=== PATIENT | female | born 1945 | race Caucasian/White ===

== ENCOUNTER 2020-02-07 09:59 | Inpatient (IN) ==
[2020-02-07 11:20] LABS: Basophils % 0.1 % (0.0-0.8); Hematocrit 47.3 VOL% (35.7-47.0); Hemoglobin 15.3 GM/DL (12.0-16.0); Immature Granulocytes % 1.1 %; Immature Granulocytes Absolute 0.11 #; Lymphocytes # 0.8 10*3/uL (1.4-4.0); Lymphocytes % 8.1 % (21.3-54.2); Mean Corpuscular HGB Conc 32.3 GM/DL (32-36); Mean Corpuscular Volume 78.2 FL (87-102); Mean Platelet Volume 10.5 FL (9.6-12.0); Monocytes % 5.6 % (1.7-12.7); Neutrophils % 85.1 % (38.7-73.9); Platelet Count 123 T/CUMM (130-400); Red Blood Count 6.05 MC/CUMM (3.8-5.5); Red Cell Distribution Width 14.9 % (9.3-17.3); White Blood Count 9.6 T/CUMM (4-12)
[2020-02-07 11:31] LABS: INR 1.1; PT Patient Result 11.3 SECS (9.8-11.9)
[2020-02-07 11:50] LABS: Albumin 2.8 G/DL (3.4-5.0); Bilirubin,Total 0.4 MG/DL (0.2-1.0); Calcium 7.9 MG/DL (8.5-10.1); Osmolality,Calculated 285.2 MOS/KG (273-304); Total Protein 6.7 G/DL (6.4-8.3)
[2020-02-07] MEDS ORDERED: LEVOFLOXACIN INJ 500 MG in PREMIX 1 EACH IV STA (11:57)
[2020-02-07] MEDS ORDERED: SODIUM CHLORIDE 0.9% 500 ML IV STA (12:13)
[2020-02-07] MEDS ORDERED: DEXAMETHASONE 4 MG/1 ML VIAL IV STA (12:14)
[2020-02-07] MEDS ORDERED: ONDANSETRON 4 MG/2 ML VIAL IV PRN (12:15)
[2020-02-07] MEDS ORDERED: ACETAMINOPHEN 325 MG TABLET PO PRN (12:15)
[2020-02-07 12:36] LABS: Bilirubin,Urine Negative (Negative); Blood, Urine Small mg/dL (Negative); Glucose,Urine (UA) >=500 mg/dL (Negative); Hyaline Casts,Urine 4 /LPF (0-3); Ketones,Urine 5 mg/dL (Negative); Mucus,Urine Occasional /LPF (Occasional); Nitrite,Urine Negative (Negative); Protein,Urine Negative; RBC,Urine 1 /HPF (0-4); Squamous Epithelial Cell,Urine Occasional /HPF (0-10); Urine Appearance CLOUDY (Clear); Urine Color Yellow (Yellow); Urine Specific Gravity 1.022 (1.001-1.035); Urine Urobilinogen < 2.0 EU/DL (0.2-1.0); WBC,Urine 4 /HPF (0-6)
[2020-02-07] MEDS: SODIUM CHLORIDE 0.9% 1,000 ML IV SCH ×2 (14:17→23:08)
[2020-02-07] MEDS: ZINC GLUCONATE 50 MG TABLET PO SCH (14:18)
[2020-02-07] MEDS ORDERED: DEXTROSE 50% 25 GM/50 ML VIAL IV PRN (16:26)
[2020-02-07] MEDS ORDERED: GLUCAGON 1 MG VIAL IM PRN (16:26)
[2020-02-07] MEDS: INSULIN LISPRO 100 UNIT/ML SUBCUT SCH ×2 (17:04→21:46)
[2020-02-07] MEDS: DEXAMETHASONE 4 MG TABLET PO SCH (21:46)
[2020-02-07] MEDS: DOCUSATE SODIUM 100 MG CAPSULE PO SCH (21:46)
[2020-02-07] MEDS: ENOXAPARIN 40 MG/0.4 ML SYRINGE SUBCUT SCH (21:47)
[2020-02-08 05:42] LABS: Basophils % 0.1 % (0.0-0.8); Hematocrit 46.7 VOL% (35.7-47.0); Hemoglobin 14.8 GM/DL (12.0-16.0); Immature Granulocytes Absolute 0.07 #; Lymphocytes # 0.5 10*3/uL (1.4-4.0); Lymphocytes % 7.1 % (21.3-54.2); Mean Corpuscular HGB Conc 31.7 GM/DL (32-36); Mean Corpuscular Volume 79.7 FL (87-102); Mean Platelet Volume 10.6 FL (9.6-12.0); Monocytes % 3.8 % (1.7-12.7); Platelet Count 110 T/CUMM (130-400); Red Blood Count 5.86 MC/CUMM (3.8-5.5); Red Cell Distribution Width 14.6 % (9.3-17.3); White Blood Count 7.3 T/CUMM (4-12)
[2020-02-08 06:02] LABS: Albumin 2.5 G/DL (3.4-5.0); Bilirubin,Total 0.5 MG/DL (0.2-1.0); Osmolality,Calculated 275.4 MOS/KG (273-304); Total Protein 7.1 G/DL (6.4-8.3)
[2020-02-08 06:04] LABS: Microcytosis Slight; Platelet Estimate Decreased
[2020-02-08] MEDS: SODIUM CHLORIDE 0.9% 1,000 ML IV SCH ×3 (06:25→21:15)
[2020-02-08] MEDS: lisinopriL 20 MG TABLET PO SCH (08:48)
[2020-02-08] MEDS: DOCUSATE SODIUM 100 MG CAPSULE PO SCH ×2 (08:48→21:10)
[2020-02-08] MEDS: ZINC GLUCONATE 50 MG TABLET PO SCH (08:48)
[2020-02-08] MEDS: PANTOPRAZOLE 40 MG TABLET PO SCH (08:48)
[2020-02-08] MEDS: DEXAMETHASONE 4 MG TABLET PO SCH ×2 (08:48→20:35)
[2020-02-08] MEDS: INSULIN LISPRO 100 UNIT/ML SUBCUT SCH ×4 (08:49→20:35)
[2020-02-08] MEDS: LEVOFLOXACIN INJ 500 MG in PREMIX 1 EACH IV SCH (08:49)
[2020-02-08] MEDS ORDERED: SODIUM CHLORIDE 0.9% 1,000 ML IV PRN (12:50)
[2020-02-08] MEDS ORDERED: REMDESIVIR 200 MG in SODIUM CHLORIDE 0.9% 210 ML IV ONE (15:00)
[2020-02-08] MEDS: ENOXAPARIN 40 MG/0.4 ML SYRINGE SUBCUT SCH (20:36)
[2020-02-09] MEDS: methylPREDNISolone SOD SUC 40 MG/1 ML VIAL IV SCH ×3 (01:02→17:05)
[2020-02-09] MEDS: SODIUM CHLORIDE 0.9% 1,000 ML IV SCH ×2 (06:05→17:28)
[2020-02-09 06:31] LABS: Basophils % 0.2 % (0.0-0.8); Hematocrit 43.5 VOL% (35.7-47.0); Hemoglobin 13.7 GM/DL (12.0-16.0); Immature Granulocytes % 1.1 %; Immature Granulocytes Absolute 0.05 #; Lymphocytes # 0.4 10*3/uL (1.4-4.0); Lymphocytes % 9.5 % (21.3-54.2); Mean Corpuscular HGB Conc 31.5 GM/DL (32-36); Mean Corpuscular Volume 80.1 FL (87-102); Mean Platelet Volume 10.9 FL (9.6-12.0); Neutrophils % 85.2 % (38.7-73.9); Platelet Count 112 T/CUMM (130-400); Red Blood Count 5.43 MC/CUMM (3.8-5.5); Red Cell Distribution Width 14.7 % (9.3-17.3); White Blood Count 4.5 T/CUMM (4-12)
[2020-02-09 06:53] LABS: Albumin 2.3 G/DL (3.4-5.0); Bilirubin,Total 0.4 MG/DL (0.2-1.0); Calcium 7.5 MG/DL (8.5-10.1); Total Protein 6.5 G/DL (6.4-8.3)
[2020-02-09 07:08] LABS: Hypochromasia Slight
[2020-02-09 07:09] LABS: Microcytosis Slight
[2020-02-09] MEDS: ZINC GLUCONATE 50 MG TABLET PO SCH (08:24)
[2020-02-09] MEDS: PANTOPRAZOLE 40 MG TABLET PO SCH (08:24)
[2020-02-09] MEDS: lisinopriL 20 MG TABLET PO SCH (08:24)
[2020-02-09] MEDS: INSULIN LISPRO 100 UNIT/ML SUBCUT SCH ×4 (08:25→22:47)
[2020-02-09] MEDS: DOCUSATE SODIUM 100 MG CAPSULE PO SCH ×2 (08:25→22:45)
[2020-02-09] MEDS: INSULIN GLARGINE 100 UNIT/ML SUBCUT SCH (08:26)
[2020-02-09] MEDS: LEVOFLOXACIN INJ 500 MG in PREMIX 1 EACH IV SCH (08:27)
[2020-02-09] MEDS: REMDESIVIR 100 MG in SODIUM CHLORIDE 0.9% 230 ML IV SCH (10:15)
[2020-02-09] MEDS: ENOXAPARIN 40 MG/0.4 ML SYRINGE SUBCUT SCH (22:48)
[2020-02-10] MEDS: methylPREDNISolone SOD SUC 40 MG/1 ML VIAL IV SCH ×4 (00:15→23:55)
[2020-02-10] MEDS: SODIUM CHLORIDE 0.9% 1,000 ML IV SCH ×2 (03:47→11:53)
[2020-02-10 05:58] LABS: Basophils % 0.1 % (0.0-0.8); Hematocrit 42.9 VOL% (35.7-47.0); Hemoglobin 13.6 GM/DL (12.0-16.0); Immature Granulocytes Absolute 0.07 #; Lymphocytes # 0.4 10*3/uL (1.4-4.0); Lymphocytes % 6.6 % (21.3-54.2); Mean Corpuscular HGB Conc 31.7 GM/DL (32-36); Mean Corpuscular Volume 81.1 FL (87-102); Mean Platelet Volume 11.4 FL (9.6-12.0); Monocytes % 5.5 % (1.7-12.7); Neutrophils % 86.8 % (38.7-73.9); Platelet Count 123 T/CUMM (130-400); Red Blood Count 5.29 MC/CUMM (3.8-5.5); Red Cell Distribution Width 14.6 % (9.3-17.3); White Blood Count 6.7 T/CUMM (4-12)
[2020-02-10 06:14] LABS: Albumin 2.1 G/DL (3.4-5.0); Bilirubin,Total 0.4 MG/DL (0.2-1.0); Calcium 7.4 MG/DL (8.5-10.1); Osmolality,Calculated 287.7 MOS/KG (273-304); Total Protein 6.1 G/DL (6.4-8.3)
[2020-02-10] MEDS: INSULIN LISPRO 100 UNIT/ML SUBCUT SCH ×4 (08:07→21:50)
[2020-02-10] MEDS: INSULIN GLARGINE 100 UNIT/ML SUBCUT SCH (08:07)
[2020-02-10] MEDS: lisinopriL 20 MG TABLET PO SCH (09:37)
[2020-02-10] MEDS: DOCUSATE SODIUM 100 MG CAPSULE PO SCH ×2 (09:37→20:00)
[2020-02-10] MEDS: LEVOFLOXACIN INJ 500 MG in PREMIX 1 EACH IV SCH (09:37)
[2020-02-10] MEDS: PANTOPRAZOLE 40 MG TABLET PO SCH (09:37)
[2020-02-10] MEDS: ZINC GLUCONATE 50 MG TABLET PO SCH (09:37)
[2020-02-10] MEDS: REMDESIVIR 100 MG in SODIUM CHLORIDE 0.9% 230 ML IV SCH (11:53)
[2020-02-10] MEDS: ENOXAPARIN 40 MG/0.4 ML SYRINGE SUBCUT SCH (20:00)
[2020-02-11 06:38] LABS: Basophils % 0.1 % (0.0-0.8); Hematocrit 43.6 VOL% (35.7-47.0); Hemoglobin 13.7 GM/DL (12.0-16.0); Immature Granulocytes % 1.1 %; Lymphocytes # 0.4 10*3/uL (1.4-4.0); Lymphocytes % 4.8 % (21.3-54.2); Mean Corpuscular HGB Conc 31.4 GM/DL (32-36); Mean Corpuscular Volume 79.7 FL (87-102); Mean Platelet Volume 11.6 FL (9.6-12.0); Monocytes % 3.7 % (1.7-12.7); Neutrophils % 90.3 % (38.7-73.9); Platelet Count 118 T/CUMM (130-400); Red Blood Count 5.47 MC/CUMM (3.8-5.5); Red Cell Distribution Width 14.7 % (9.3-17.3); White Blood Count 8.9 T/CUMM (4-12)
[2020-02-11 06:59] LABS: Albumin 2.3 G/DL (3.4-5.0); Bilirubin,Total 2.8 MG/DL (0.2-1.0); Calcium 7.7 MG/DL (8.5-10.1); Lymphocytes 6 % (20-55); Microcytosis Slight; Osmolality,Calculated 284.4 MOS/KG (273-304); Platelet Estimate Normal; Segmented Neutrophils 88 % (50-85); Total Cells Counted 100; Total Protein 6.5 G/DL (6.4-8.3)
[2020-02-11] MEDS: INSULIN LISPRO 100 UNIT/ML SUBCUT SCH ×4 (08:25→21:03)
[2020-02-11] MEDS: lisinopriL 20 MG TABLET PO SCH (08:35)
[2020-02-11] MEDS: ZINC GLUCONATE 50 MG TABLET PO SCH (08:35)
[2020-02-11] MEDS: INSULIN GLARGINE 100 UNIT/ML SUBCUT SCH (08:35)
[2020-02-11] MEDS: PANTOPRAZOLE 40 MG TABLET PO SCH (08:35)
[2020-02-11] MEDS: DOCUSATE SODIUM 100 MG CAPSULE PO SCH ×2 (09:04→20:29)
[2020-02-11] MEDS: methylPREDNISolone SOD SUC 40 MG/1 ML VIAL IV SCH ×2 (11:42→16:55)
[2020-02-11] MEDS: LEVOFLOXACIN INJ 500 MG in PREMIX 1 EACH IV SCH (11:45)
[2020-02-11] MEDS: REMDESIVIR 100 MG in SODIUM CHLORIDE 0.9% 230 ML IV SCH (13:00)
[2020-02-11] MEDS: ENOXAPARIN 40 MG/0.4 ML SYRINGE SUBCUT SCH (20:26)
[2020-02-12] MEDS: methylPREDNISolone SOD SUC 40 MG/1 ML VIAL IV SCH ×4 (00:22→21:56)
[2020-02-12 05:05] LABS: Basophils % 0.3 % (0.0-0.8); Hematocrit 44.7 VOL% (35.7-47.0); Hemoglobin 14.2 GM/DL (12.0-16.0); Immature Granulocytes % 2.3 %; Immature Granulocytes Absolute 0.16 #; Lymphocytes # 0.4 10*3/uL (1.4-4.0); Lymphocytes % 5.6 % (21.3-54.2); Mean Corpuscular HGB Conc 31.8 GM/DL (32-36); Mean Corpuscular Volume 79.3 FL (87-102); Mean Platelet Volume 11.4 FL (9.6-12.0); Monocytes % 3.5 % (1.7-12.7); Neutrophils % 88.3 % (38.7-73.9); Red Blood Count 5.64 MC/CUMM (3.8-5.5); Red Cell Distribution Width 14.4 % (9.3-17.3); White Blood Count 6.8 T/CUMM (4-12)
[2020-02-12 05:08] LABS: Platelet Count 75 T/CUMM (130-400)
[2020-02-12 05:21] LABS: Albumin 2.1 G/DL (3.4-5.0); Calcium 7.4 MG/DL (8.5-10.1); Osmolality,Calculated 282.8 MOS/KG (273-304); Total Protein 6.2 G/DL (6.4-8.3)
[2020-02-12 05:26] LABS: Band Neutrophils 3 % (0-10); Lymphocytes 5 % (20-55); Segmented Neutrophils 89 % (50-85); Total Cells Counted 100
[2020-02-12 05:27] LABS: Hypochromasia 1+; Microcytosis Slight; Platelet Estimate Decreased
[2020-02-12] MEDS: INSULIN LISPRO 100 UNIT/ML SUBCUT SCH ×4 (09:07→21:55)
[2020-02-12] MEDS: LEVOFLOXACIN INJ 500 MG in PREMIX 1 EACH IV SCH (09:08)
[2020-02-12] MEDS: INSULIN GLARGINE 100 UNIT/ML SUBCUT SCH (09:08)
[2020-02-12] MEDS: DOCUSATE SODIUM 100 MG CAPSULE PO SCH ×2 (09:08→21:55)
[2020-02-12] MEDS: lisinopriL 20 MG TABLET PO SCH (09:09)
[2020-02-12] MEDS: PANTOPRAZOLE 40 MG TABLET PO SCH (09:09)
[2020-02-12] MEDS: ZINC GLUCONATE 50 MG TABLET PO SCH (09:21)
[2020-02-12] MEDS: REMDESIVIR 100 MG in SODIUM CHLORIDE 0.9% 230 ML IV SCH (11:29)
[2020-02-12 14:13] LABS: Mycoplasma pneumoniae Ab Inter SEE COMMENTS; Mycoplasma pneumoniae Ab, IgG Positive (Negative); Mycoplasma pneumoniae Ab, IgM Negative (Negative)
[2020-02-12] MEDS: BENZONATATE 100 MG CAPSULE PO SCH ×2 (15:05→21:56)
[2020-02-12] MEDS: ENOXAPARIN 40 MG/0.4 ML SYRINGE SUBCUT SCH (21:55)
[2020-02-13 03:48] LABS: ABG Base Excess 2.4 MMOL/L (-2.5-2.5); ABG HCO3 26.2 MMOL/L (20-26); ABG Oxygen Saturation 85.3 % (95-100); ABG PCO2 37.5 MM HG (35-48); ABG PH 7.451 (7.35-7.45); ABG PO2 49.8 MM HG (80-95); ABG TCO2 22.5 MMOL/L (23-27)
[2020-02-13 05:24] LABS: Basophils % 0.3 % (0.0-0.8); Hematocrit 45.7 VOL% (35.7-47.0); Hemoglobin 14.5 GM/DL (12.0-16.0); Immature Granulocytes % 2.8 %; Immature Granulocytes Absolute 0.22 #; Lymphocytes # 0.4 10*3/uL (1.4-4.0); Lymphocytes % 5.4 % (21.3-54.2); Mean Corpuscular HGB Conc 31.7 GM/DL (32-36); Mean Corpuscular Volume 78.8 FL (87-102); Mean Platelet Volume 12.2 FL (9.6-12.0); Monocytes % 3.1 % (1.7-12.7); Neutrophils % 88.4 % (38.7-73.9); Red Cell Distribution Width 14.4 % (9.3-17.3); White Blood Count 7.9 T/CUMM (4-12)
[2020-02-13 05:27] LABS: Platelet Count 63 T/CUMM (130-400)
[2020-02-13 05:43] LABS: Platelet Estimate Decreased
[2020-02-13 05:56] LABS: Calcium 7.6 MG/DL (8.5-10.1); Osmolality,Calculated 282.8 MOS/KG (273-304); Total Protein 6.2 G/DL (6.4-8.3)
[2020-02-13] MEDS: methylPREDNISolone SOD SUC 40 MG/1 ML VIAL IV SCH ×3 (06:57→15:53)
[2020-02-13] MEDS: DOCUSATE SODIUM 100 MG CAPSULE PO SCH ×2 (08:13→21:54)
[2020-02-13] MEDS: LEVOFLOXACIN INJ 500 MG in PREMIX 1 EACH IV SCH (08:13)
[2020-02-13] MEDS: INSULIN GLARGINE 100 UNIT/ML SUBCUT SCH (08:13)
[2020-02-13] MEDS: lisinopriL 20 MG TABLET PO SCH (08:14)
[2020-02-13] MEDS: BENZONATATE 100 MG CAPSULE PO SCH ×3 (08:14→21:53)
[2020-02-13] MEDS: ZINC GLUCONATE 50 MG TABLET PO SCH (08:14)
[2020-02-13] MEDS: INSULIN LISPRO 100 UNIT/ML SUBCUT SCH ×4 (08:21→21:52)
[2020-02-13] MEDS: FAMOTIDINE 20 MG TABLET PO SCH (08:45)
[2020-02-13] MEDS: CHOLECALCIFEROL 1,000 UNIT TABLET PO SCH (08:46)
[2020-02-13] MEDS ORDERED: FUROSEMIDE 40 MG/4 ML VIAL IV ONE (15:43)
[2020-02-13] MEDS: ENOXAPARIN 40 MG/0.4 ML SYRINGE SUBCUT SCH (21:52)
[2020-02-14] MEDS: methylPREDNISolone SOD SUC 40 MG/1 ML VIAL IV SCH ×4 (00:42→23:50)
[2020-02-14] MEDS: INSULIN LISPRO 100 UNIT/ML SUBCUT SCH ×4 (09:06→21:18)
[2020-02-14] MEDS: INSULIN GLARGINE 100 UNIT/ML SUBCUT SCH (09:06)
[2020-02-14] MEDS: LEVOFLOXACIN INJ 500 MG in PREMIX 1 EACH IV SCH (09:07)
[2020-02-14] MEDS: ZINC GLUCONATE 50 MG TABLET PO SCH (09:07)
[2020-02-14] MEDS: CHOLECALCIFEROL 1,000 UNIT TABLET PO SCH (09:07)
[2020-02-14] MEDS: BENZONATATE 100 MG CAPSULE PO SCH ×3 (09:07→21:18)
[2020-02-14] MEDS: DOCUSATE SODIUM 100 MG CAPSULE PO SCH ×2 (09:07→21:36)
[2020-02-14] MEDS: FAMOTIDINE 20 MG TABLET PO SCH (09:07)
[2020-02-14] MEDS: lisinopriL 20 MG TABLET PO SCH (09:10)
[2020-02-14] MEDS: ENOXAPARIN 40 MG/0.4 ML SYRINGE SUBCUT SCH (21:18)
[2020-02-15] MEDS: INSULIN LISPRO 100 UNIT/ML SUBCUT SCH ×4 (08:04→20:43)
[2020-02-15] MEDS: methylPREDNISolone SOD SUC 40 MG/1 ML VIAL IV SCH ×2 (08:05→17:01)
[2020-02-15] MEDS: CHOLECALCIFEROL 1,000 UNIT TABLET PO SCH (08:05)
[2020-02-15] MEDS: INSULIN GLARGINE 100 UNIT/ML SUBCUT SCH (08:05)
[2020-02-15] MEDS: FAMOTIDINE 20 MG TABLET PO SCH (08:06)
[2020-02-15] MEDS: lisinopriL 20 MG TABLET PO SCH (08:06)
[2020-02-15] MEDS: ZINC GLUCONATE 50 MG TABLET PO SCH (08:06)
[2020-02-15] MEDS: DOCUSATE SODIUM 100 MG CAPSULE PO SCH ×2 (08:06→20:42)
[2020-02-15] MEDS: BENZONATATE 100 MG CAPSULE PO SCH ×3 (08:06→20:43)
[2020-02-15] MEDS: LEVOFLOXACIN INJ 500 MG in PREMIX 1 EACH IV SCH (08:06)
[2020-02-15] MEDS: ENOXAPARIN 40 MG/0.4 ML SYRINGE SUBCUT SCH (20:43)
[2020-02-16] MEDS: methylPREDNISolone SOD SUC 40 MG/1 ML VIAL IV SCH ×3 (00:11→15:23)
[2020-02-16 06:36] LABS: Basophils % 0.1 % (0.0-0.8); Hematocrit 41.8 VOL% (35.7-47.0); Hemoglobin 13.3 GM/DL (12.0-16.0); Immature Granulocytes % 2.7 %; Immature Granulocytes Absolute 0.23 #; Lymphocytes # 0.4 10*3/uL (1.4-4.0); Lymphocytes % 4.4 % (21.3-54.2); Mean Corpuscular HGB Conc 31.8 GM/DL (32-36); Mean Corpuscular Volume 78.7 FL (87-102); Mean Platelet Volume 11.4 FL (9.6-12.0); Monocytes % 4.5 % (1.7-12.7); Neutrophils % 88.3 % (38.7-73.9); Platelet Count 89 T/CUMM (130-400); Red Blood Count 5.31 MC/CUMM (3.8-5.5); Red Cell Distribution Width 14.5 % (9.3-17.3); White Blood Count 8.6 T/CUMM (4-12)
[2020-02-16 07:00] LABS: Albumin 1.9 G/DL (3.4-5.0); Calcium 7.8 MG/DL (8.5-10.1); Total Protein 5.7 G/DL (6.4-8.3)
[2020-02-16 07:37] LABS: Band Neutrophils 2 % (0-10); Lymphocytes 4 % (20-55); Platelet Estimate Decreased; Segmented Neutrophils 93 % (50-85); Total Cells Counted 100
[2020-02-16 07:38] LABS: Hypochromasia 1+; Microcytosis 2+
[2020-02-16] MEDS: INSULIN LISPRO 100 UNIT/ML SUBCUT SCH ×4 (08:19→21:04)
[2020-02-16] MEDS: ZINC GLUCONATE 50 MG TABLET PO SCH (09:10)
[2020-02-16] MEDS: BENZONATATE 100 MG CAPSULE PO SCH ×3 (09:11→21:06)
[2020-02-16] MEDS: FAMOTIDINE 20 MG TABLET PO SCH (09:11)
[2020-02-16] MEDS: lisinopriL 20 MG TABLET PO SCH (09:11)
[2020-02-16] MEDS: CHOLECALCIFEROL 1,000 UNIT TABLET PO SCH (09:11)
[2020-02-16] MEDS: DOCUSATE SODIUM 100 MG CAPSULE PO SCH ×2 (09:11→21:04)
[2020-02-16] MEDS: INSULIN GLARGINE 100 UNIT/ML SUBCUT SCH (09:12)
[2020-02-16] MEDS: ENOXAPARIN 40 MG/0.4 ML SYRINGE SUBCUT SCH (21:06)
[2020-02-17] MEDS: methylPREDNISolone SOD SUC 40 MG/1 ML VIAL IV SCH ×3 (00:53→16:24)
[2020-02-17] MEDS: DOCUSATE SODIUM 100 MG CAPSULE PO SCH ×2 (08:58→21:04)
[2020-02-17] MEDS: INSULIN GLARGINE 100 UNIT/ML SUBCUT SCH (08:58)
[2020-02-17] MEDS: ZINC GLUCONATE 50 MG TABLET PO SCH (08:58)
[2020-02-17] MEDS: CHOLECALCIFEROL 1,000 UNIT TABLET PO SCH (08:58)
[2020-02-17] MEDS: BENZONATATE 100 MG CAPSULE PO SCH ×3 (08:58→21:05)
[2020-02-17] MEDS: FAMOTIDINE 20 MG TABLET PO SCH (08:58)
[2020-02-17] MEDS: INSULIN LISPRO 100 UNIT/ML SUBCUT SCH ×4 (09:05→21:05)
[2020-02-17] MEDS: lisinopriL 20 MG TABLET PO SCH (09:05)
[2020-02-17] MEDS: ENOXAPARIN 40 MG/0.4 ML SYRINGE SUBCUT SCH (21:05)
[2020-02-18] MEDS: methylPREDNISolone SOD SUC 40 MG/1 ML VIAL IV SCH ×3 (00:15→16:00)
[2020-02-18] MEDS: INSULIN LISPRO 100 UNIT/ML SUBCUT SCH ×4 (07:25→21:20)
[2020-02-18] MEDS: FAMOTIDINE 20 MG TABLET PO SCH (09:49)
[2020-02-18] MEDS: INSULIN GLARGINE 100 UNIT/ML SUBCUT SCH (09:49)
[2020-02-18] MEDS: lisinopriL 20 MG TABLET PO SCH (09:49)
[2020-02-18] MEDS: CHOLECALCIFEROL 1,000 UNIT TABLET PO SCH (09:49)
[2020-02-18] MEDS: ZINC GLUCONATE 50 MG TABLET PO SCH (09:50)
[2020-02-18] MEDS: BENZONATATE 100 MG CAPSULE PO SCH ×3 (09:50→21:20)
[2020-02-18] MEDS: DOCUSATE SODIUM 100 MG CAPSULE PO SCH ×2 (09:57→21:19)
[2020-02-18] MEDS: ENOXAPARIN 40 MG/0.4 ML SYRINGE SUBCUT SCH (21:20)
[2020-02-19] MEDS: methylPREDNISolone SOD SUC 40 MG/1 ML VIAL IV SCH ×3 (00:46→16:06)
[2020-02-19] MEDS: INSULIN LISPRO 100 UNIT/ML SUBCUT SCH ×4 (07:30→20:38)
[2020-02-19] MEDS: FAMOTIDINE 20 MG TABLET PO SCH (09:16)
[2020-02-19] MEDS: ZINC GLUCONATE 50 MG TABLET PO SCH (09:16)
[2020-02-19] MEDS: lisinopriL 20 MG TABLET PO SCH (09:16)
[2020-02-19] MEDS: INSULIN GLARGINE 100 UNIT/ML SUBCUT SCH (09:16)
[2020-02-19] MEDS: BENZONATATE 100 MG CAPSULE PO SCH ×3 (09:16→20:37)
[2020-02-19] MEDS: CHOLECALCIFEROL 1,000 UNIT TABLET PO SCH (09:16)
[2020-02-19] MEDS: DOCUSATE SODIUM 100 MG CAPSULE PO SCH ×3 (09:16→21:21)
[2020-02-19 11:42] LABS: Eosinophils % 0.3 % (0.00-10.9); Hematocrit 44.7 VOL% (35.7-47.0); Hemoglobin 14.4 GM/DL (12.0-16.0); Immature Granulocytes % 1.2 %; Immature Granulocytes Absolute 0.18 #; Lymphocytes # 0.3 10*3/uL (1.4-4.0); Lymphocytes % 1.8 % (21.3-54.2); Mean Corpuscular HGB Conc 32.2 GM/DL (32-36); Mean Corpuscular Volume 78.7 FL (87-102); Mean Platelet Volume 10.1 FL (9.6-12.0); Monocytes % 4.9 % (1.7-12.7); Neutrophils % 91.8 % (38.7-73.9); Red Blood Count 5.68 MC/CUMM (3.8-5.5); Red Cell Distribution Width 14.7 % (9.3-17.3); White Blood Count 15.5 T/CUMM (4-12)
[2020-02-19 11:44] LABS: Platelet Count 92 T/CUMM (130-400)
[2020-02-19 11:58] LABS: Hypochromasia Slight; Lymphocytes 1 % (20-55); Microcytosis 1+; Platelet Estimate Decreased; Segmented Neutrophils 96 % (50-85); Total Cells Counted 100
[2020-02-19 12:15] LABS: Albumin 2.1 G/DL (3.4-5.0); Bilirubin,Total 1.1 MG/DL (0.2-1.0); Calcium 8.2 MG/DL (8.5-10.1); Osmolality,Calculated 278.1 MOS/KG (273-304); Total Protein 6.4 G/DL (6.4-8.3)
[2020-02-19] MEDS: ENOXAPARIN 40 MG/0.4 ML SYRINGE SUBCUT SCH (20:38)
[2020-02-20] MEDS: CHOLECALCIFEROL 1,000 UNIT TABLET PO SCH (09:10)
[2020-02-20] MEDS: lisinopriL 20 MG TABLET PO SCH (09:10)
[2020-02-20] MEDS: DOCUSATE SODIUM 100 MG CAPSULE PO SCH ×2 (09:10→21:02)
[2020-02-20] MEDS: NYSTATIN 500,000 UNIT/5 ML UDCUP SWISH/SWAL SCH ×4 (09:10→21:02)
[2020-02-20] MEDS: BENZONATATE 100 MG CAPSULE PO SCH ×3 (09:10→21:02)
[2020-02-20] MEDS: INSULIN GLARGINE 100 UNIT/ML SUBCUT SCH (09:10)
[2020-02-20] MEDS: methylPREDNISolone SOD SUC 40 MG/1 ML VIAL IV SCH ×4 (09:10→23:27)
[2020-02-20] MEDS: FAMOTIDINE 20 MG TABLET PO SCH (09:10)
[2020-02-20] MEDS: INSULIN LISPRO 100 UNIT/ML SUBCUT SCH ×4 (09:10→21:02)
[2020-02-20] MEDS: ZINC GLUCONATE 50 MG TABLET PO SCH (09:10)
[2020-02-20] MEDS: ENOXAPARIN 40 MG/0.4 ML SYRINGE SUBCUT SCH (21:02)
[2020-02-21] MEDS: INSULIN LISPRO 100 UNIT/ML SUBCUT SCH ×4 (07:25→21:30)
[2020-02-21] MEDS: methylPREDNISolone SOD SUC 40 MG/1 ML VIAL IV SCH ×2 (08:11→16:24)
[2020-02-21] MEDS: INSULIN GLARGINE 100 UNIT/ML SUBCUT SCH (08:12)
[2020-02-21] MEDS: ZINC GLUCONATE 50 MG TABLET PO SCH (08:12)
[2020-02-21] MEDS: CHOLECALCIFEROL 1,000 UNIT TABLET PO SCH (08:13)
[2020-02-21] MEDS: DOCUSATE SODIUM 100 MG CAPSULE PO SCH ×2 (08:13→21:41)
[2020-02-21] MEDS: lisinopriL 20 MG TABLET PO SCH (08:14)
[2020-02-21] MEDS: BENZONATATE 100 MG CAPSULE PO SCH ×3 (08:14→21:30)
[2020-02-21] MEDS: NYSTATIN 500,000 UNIT/5 ML UDCUP SWISH/SWAL SCH ×4 (08:14→21:30)
[2020-02-21] MEDS: FAMOTIDINE 20 MG TABLET PO SCH (09:35)
[2020-02-21] MEDS: ENOXAPARIN 40 MG/0.4 ML SYRINGE SUBCUT SCH (21:30)
[2020-02-21] MEDS ORDERED: guaiFENesin/CODEINE 5 ML LIQUID PO PRN (23:33)
[2020-02-22] MEDS: NYSTATIN 500,000 UNIT/5 ML UDCUP SWISH/SWAL SCH ×4 (08:34→22:05)
[2020-02-22] MEDS: BENZONATATE 100 MG CAPSULE PO SCH ×3 (08:34→22:05)
[2020-02-22] MEDS: CHOLECALCIFEROL 1,000 UNIT TABLET PO SCH (08:34)
[2020-02-22] MEDS: lisinopriL 20 MG TABLET PO SCH (08:34)
[2020-02-22] MEDS: FAMOTIDINE 20 MG TABLET PO SCH (08:35)
[2020-02-22] MEDS: ZINC GLUCONATE 50 MG TABLET PO SCH (08:35)
[2020-02-22] MEDS: DOCUSATE SODIUM 100 MG CAPSULE PO SCH ×2 (08:35→20:27)
[2020-02-22] MEDS: INSULIN GLARGINE 100 UNIT/ML SUBCUT SCH (08:36)
[2020-02-22] MEDS: INSULIN LISPRO 100 UNIT/ML SUBCUT SCH ×4 (08:36→22:05)
[2020-02-22] MEDS: methylPREDNISolone SOD SUC 40 MG/1 ML VIAL IV SCH ×4 (08:36→23:45)
[2020-02-22] MEDS: ENOXAPARIN 40 MG/0.4 ML SYRINGE SUBCUT SCH (22:05)
[2020-02-23] MEDS: FAMOTIDINE 20 MG TABLET PO SCH (08:47)
[2020-02-23] MEDS: CHOLECALCIFEROL 1,000 UNIT TABLET PO SCH (08:48)
[2020-02-23] MEDS: INSULIN GLARGINE 100 UNIT/ML SUBCUT SCH (08:48)
[2020-02-23] MEDS: BENZONATATE 100 MG CAPSULE PO SCH ×3 (08:48→21:34)
[2020-02-23] MEDS: INSULIN LISPRO 100 UNIT/ML SUBCUT SCH ×4 (08:48→21:34)
[2020-02-23] MEDS: methylPREDNISolone SOD SUC 40 MG/1 ML VIAL IV SCH ×3 (08:49→23:30)
[2020-02-23] MEDS: DOCUSATE SODIUM 100 MG CAPSULE PO SCH ×2 (08:49→21:30)
[2020-02-23] MEDS: lisinopriL 20 MG TABLET PO SCH (08:49)
[2020-02-23] MEDS: ZINC GLUCONATE 50 MG TABLET PO SCH (08:49)
[2020-02-23] MEDS: NYSTATIN 500,000 UNIT/5 ML UDCUP SWISH/SWAL SCH ×4 (08:49→21:34)
[2020-02-23] MEDS ORDERED: DEXTROMETHORPHAN ER 6 MG/ML 90 ML/BOTTLE PO PRN (15:30)
[2020-02-23] MEDS: ENOXAPARIN 40 MG/0.4 ML SYRINGE SUBCUT SCH (21:34)
[2020-02-24] MEDS: INSULIN LISPRO 100 UNIT/ML SUBCUT SCH ×4 (08:11→21:10)
[2020-02-24] MEDS: INSULIN GLARGINE 100 UNIT/ML SUBCUT SCH (09:15)
[2020-02-24] MEDS: methylPREDNISolone SOD SUC 40 MG/1 ML VIAL IV SCH ×2 (09:15→17:00)
[2020-02-24] MEDS: BENZONATATE 100 MG CAPSULE PO SCH ×3 (09:16→21:11)
[2020-02-24] MEDS: FAMOTIDINE 20 MG TABLET PO SCH (09:16)
[2020-02-24] MEDS: lisinopriL 20 MG TABLET PO SCH (09:16)
[2020-02-24] MEDS: DOCUSATE SODIUM 100 MG CAPSULE PO SCH ×2 (09:16→21:10)
[2020-02-24] MEDS: CHOLECALCIFEROL 1,000 UNIT TABLET PO SCH (09:16)
[2020-02-24] MEDS: NYSTATIN 500,000 UNIT/5 ML UDCUP SWISH/SWAL SCH ×4 (09:16→21:11)
[2020-02-24] MEDS: ZINC GLUCONATE 50 MG TABLET PO SCH (09:16)
[2020-02-25] MEDS: methylPREDNISolone SOD SUC 40 MG/1 ML VIAL IV SCH ×4 (00:47→23:36)
[2020-02-25 06:32] LABS: Basophils % 0.1 % (0.0-0.8); Eosinophils % 0.1 % (0.00-10.9); Hemoglobin 13.3 GM/DL (12.0-16.0); Immature Granulocytes % 1.7 %; Immature Granulocytes Absolute 0.18 #; Lymphocytes # 0.5 10*3/uL (1.4-4.0); Mean Corpuscular HGB Conc 30.9 GM/DL (32-36); Mean Corpuscular Volume 80.5 FL (87-102); Mean Platelet Volume 10.2 FL (9.6-12.0); Monocytes % 3.7 % (1.7-12.7); Neutrophils % 89.4 % (38.7-73.9); Platelet Count 164 T/CUMM (130-400); Red Blood Count 5.34 MC/CUMM (3.8-5.5); Red Cell Distribution Width 14.3 % (9.3-17.3); White Blood Count 10.7 T/CUMM (4-12)
[2020-02-25 06:58] LABS: Calcium 8.2 MG/DL (8.5-10.1); Osmolality,Calculated 289.4 MOS/KG (273-304)
[2020-02-25 07:00] LABS: PT Patient Result 10.8 SECS (9.8-11.9); Partial Thromboplastin Time 23.9 SECS (23.9-33.8)
[2020-02-25] MEDS: INSULIN LISPRO 100 UNIT/ML SUBCUT SCH ×4 (07:49→20:41)
[2020-02-25] MEDS: INSULIN GLARGINE 100 UNIT/ML SUBCUT SCH (08:38)
[2020-02-25] MEDS: DOCUSATE SODIUM 100 MG CAPSULE PO SCH ×2 (08:38→20:23)
[2020-02-25] MEDS: NYSTATIN 500,000 UNIT/5 ML UDCUP SWISH/SWAL SCH ×4 (08:39→20:22)
[2020-02-25] MEDS: ZINC GLUCONATE 50 MG TABLET PO SCH (08:39)
[2020-02-25] MEDS: lisinopriL 20 MG TABLET PO SCH (08:39)
[2020-02-25] MEDS: CHOLECALCIFEROL 1,000 UNIT TABLET PO SCH (08:39)
[2020-02-25] MEDS: FAMOTIDINE 20 MG TABLET PO SCH (08:39)
[2020-02-25] MEDS: BENZONATATE 100 MG CAPSULE PO SCH ×3 (08:39→20:23)
[2020-02-25] MEDS: DESITIN 4OZ/NYSTATIN 15 GRAM MIXTURE PASTE TOP SCH ×2 (12:27→21:20)
[2020-02-25] MEDS: ENOXAPARIN 40 MG/0.4 ML SYRINGE SUBCUT SCH (21:19)
[2020-02-26] MEDS: INSULIN LISPRO 100 UNIT/ML SUBCUT SCH ×4 (07:24→21:28)
[2020-02-26] MEDS: INSULIN GLARGINE 100 UNIT/ML SUBCUT SCH (07:25)
[2020-02-26] MEDS: CHOLECALCIFEROL 1,000 UNIT TABLET PO SCH (09:08)
[2020-02-26] MEDS: BENZONATATE 100 MG CAPSULE PO SCH ×3 (09:08→21:29)
[2020-02-26] MEDS: lisinopriL 20 MG TABLET PO SCH (09:08)
[2020-02-26] MEDS: FAMOTIDINE 20 MG TABLET PO SCH (09:08)
[2020-02-26] MEDS: ZINC GLUCONATE 50 MG TABLET PO SCH (09:08)
[2020-02-26] MEDS: DOCUSATE SODIUM 100 MG CAPSULE PO SCH ×2 (09:09→21:29)
[2020-02-26] MEDS: methylPREDNISolone SOD SUC 40 MG/1 ML VIAL IV SCH ×2 (09:09→16:41)
[2020-02-26] MEDS: NYSTATIN 500,000 UNIT/5 ML UDCUP SWISH/SWAL SCH ×4 (09:09→21:29)
[2020-02-26] MEDS: DESITIN 4OZ/NYSTATIN 15 GRAM MIXTURE PASTE TOP SCH (09:30)
[2020-02-26] MEDS: ENOXAPARIN 40 MG/0.4 ML SYRINGE SUBCUT SCH (21:28)
[2020-02-27] MEDS: DESITIN 4OZ/NYSTATIN 15 GRAM MIXTURE PASTE TOP SCH ×3 (00:59→22:13)
[2020-02-27] MEDS: methylPREDNISolone SOD SUC 40 MG/1 ML VIAL IV SCH ×3 (00:59→16:24)
[2020-02-27] MEDS: INSULIN LISPRO 100 UNIT/ML SUBCUT SCH ×4 (07:42→22:11)
[2020-02-27] MEDS: INSULIN GLARGINE 100 UNIT/ML SUBCUT SCH (07:42)
[2020-02-27] MEDS: FAMOTIDINE 20 MG TABLET PO SCH (08:43)
[2020-02-27] MEDS: CHOLECALCIFEROL 1,000 UNIT TABLET PO SCH (08:43)
[2020-02-27] MEDS: BENZONATATE 100 MG CAPSULE PO SCH ×3 (08:44→22:12)
[2020-02-27] MEDS: NYSTATIN 500,000 UNIT/5 ML UDCUP SWISH/SWAL SCH ×5 (08:44→22:22)
[2020-02-27] MEDS: lisinopriL 20 MG TABLET PO SCH (08:44)
[2020-02-27] MEDS: DOCUSATE SODIUM 100 MG CAPSULE PO SCH ×2 (08:56→22:12)
[2020-02-27] MEDS: ENOXAPARIN 40 MG/0.4 ML SYRINGE SUBCUT SCH (22:13)
[2020-02-28] MEDS: methylPREDNISolone SOD SUC 40 MG/1 ML VIAL IV SCH ×3 (00:58→16:53)
[2020-02-28] MEDS: INSULIN LISPRO 100 UNIT/ML SUBCUT SCH ×4 (07:27→23:01)
[2020-02-28] MEDS: BENZONATATE 100 MG CAPSULE PO SCH ×3 (09:07→23:01)
[2020-02-28] MEDS: lisinopriL 20 MG TABLET PO SCH (09:07)
[2020-02-28] MEDS: FAMOTIDINE 20 MG TABLET PO SCH (09:07)
[2020-02-28] MEDS: CHOLECALCIFEROL 1,000 UNIT TABLET PO SCH (09:07)
[2020-02-28] MEDS: DOCUSATE SODIUM 100 MG CAPSULE PO SCH ×2 (09:08→23:22)
[2020-02-28] MEDS: INSULIN GLARGINE 100 UNIT/ML SUBCUT SCH (09:08)
[2020-02-28] MEDS: DESITIN 4OZ/NYSTATIN 15 GRAM MIXTURE PASTE TOP SCH ×2 (09:09→23:22)
[2020-02-28] MEDS: NYSTATIN 500,000 UNIT/5 ML UDCUP SWISH/SWAL SCH ×5 (09:09→23:23)
[2020-02-28] MEDS: ENOXAPARIN 40 MG/0.4 ML SYRINGE SUBCUT SCH (23:02)
[2020-02-29] MEDS: methylPREDNISolone SOD SUC 40 MG/1 ML VIAL IV SCH ×4 (00:46→23:20)
[2020-02-29] MEDS: INSULIN GLARGINE 100 UNIT/ML SUBCUT SCH (08:33)
[2020-02-29] MEDS: INSULIN LISPRO 100 UNIT/ML SUBCUT SCH ×4 (08:33→20:29)
[2020-02-29] MEDS: BENZONATATE 100 MG CAPSULE PO SCH ×3 (08:34→20:30)
[2020-02-29] MEDS: FAMOTIDINE 20 MG TABLET PO SCH (08:34)
[2020-02-29] MEDS: lisinopriL 20 MG TABLET PO SCH (08:34)
[2020-02-29] MEDS: NYSTATIN 500,000 UNIT/5 ML UDCUP SWISH/SWAL SCH ×5 (08:34→20:31)
[2020-02-29] MEDS: CHOLECALCIFEROL 1,000 UNIT TABLET PO SCH (08:34)
[2020-02-29] MEDS: DESITIN 4OZ/NYSTATIN 15 GRAM MIXTURE PASTE TOP SCH ×2 (08:34→20:30)
[2020-02-29] MEDS: DOCUSATE SODIUM 100 MG CAPSULE PO SCH ×2 (08:34→20:30)
[2020-02-29] MEDS: ENOXAPARIN 40 MG/0.4 ML SYRINGE SUBCUT SCH (20:29)
[2020-03-01] MEDS: DOCUSATE SODIUM 100 MG CAPSULE PO SCH ×2 (08:37→20:10)
[2020-03-01] MEDS: lisinopriL 20 MG TABLET PO SCH (08:37)
[2020-03-01] MEDS: INSULIN GLARGINE 100 UNIT/ML SUBCUT SCH (08:37)
[2020-03-01] MEDS: BENZONATATE 100 MG CAPSULE PO SCH ×3 (08:37→20:10)
[2020-03-01] MEDS: CHOLECALCIFEROL 1,000 UNIT TABLET PO SCH (08:37)
[2020-03-01] MEDS: FAMOTIDINE 20 MG TABLET PO SCH (08:37)
[2020-03-01] MEDS: methylPREDNISolone SOD SUC 40 MG/1 ML VIAL IV SCH ×3 (08:38→23:05)
[2020-03-01] MEDS: NYSTATIN 500,000 UNIT/5 ML UDCUP SWISH/SWAL SCH ×4 (08:38→21:45)
[2020-03-01] MEDS: DESITIN 4OZ/NYSTATIN 15 GRAM MIXTURE PASTE TOP SCH ×2 (08:38→20:10)
[2020-03-01] MEDS: INSULIN LISPRO 100 UNIT/ML SUBCUT SCH ×4 (08:38→20:10)
[2020-03-01] MEDS: ENOXAPARIN 40 MG/0.4 ML SYRINGE SUBCUT SCH (20:10)
[2020-03-02] MEDS ORDERED: INSULIN GLARGINE 100 UNIT/ML SUBCUT SCH ×2 (05:41→09:00)
[2020-03-02 06:36] LABS: Basophils % 0.2 % (0.0-0.8); Hematocrit 41.7 VOL% (35.7-47.0); Immature Granulocytes % 7.2 %; Immature Granulocytes Absolute 0.87 #; Lymphocytes # 0.6 10*3/uL (1.4-4.0); Lymphocytes % 5.1 % (21.3-54.2); Mean Corpuscular HGB Conc 31.2 GM/DL (32-36); Mean Platelet Volume 9.7 FL (9.6-12.0); Monocytes % 3.8 % (1.7-12.7); Neutrophils % 83.7 % (38.7-73.9); Platelet Count 106 T/CUMM (130-400); Red Blood Count 5.15 MC/CUMM (3.8-5.5); White Blood Count 12.1 T/CUMM (4-12)
[2020-03-02 07:06] LABS: Albumin 2.4 G/DL (3.4-5.0); Bilirubin,Total 0.8 MG/DL (0.2-1.0); Calcium 7.9 MG/DL (8.5-10.1); Osmolality,Calculated 287.5 MOS/KG (273-304); Total Protein 5.6 G/DL (6.4-8.3)
[2020-03-02 07:40] VITALS: BP 177/67
[2020-03-02] MEDS: INSULIN LISPRO 100 UNIT/ML SUBCUT SCH (08:13)
[2020-03-02 08:52] LABS: Anisocytosis 1+; Band Neutrophils 9 % (0-10); Lymphocytes 8 % (20-55); Metamyelocytes 2 %; Platelet Estimate Adequate; Segmented Neutrophils 78 % (50-85); Total Cells Counted 100
[2020-03-02] MEDS: DESITIN 4OZ/NYSTATIN 15 GRAM MIXTURE PASTE TOP SCH (08:59)
[2020-03-02] MEDS: FAMOTIDINE 20 MG TABLET PO SCH (09:00)
[2020-03-02] MEDS: lisinopriL 20 MG TABLET PO SCH (09:00)
[2020-03-02] MEDS ORDERED: predniSONE 10 MG TABLET PO SCH (09:00)
[2020-03-02] MEDS: DOCUSATE SODIUM 100 MG CAPSULE PO SCH (09:01)
[2020-03-02] MEDS: BENZONATATE 100 MG CAPSULE PO SCH (09:01)
[2020-03-02] MEDS: CHOLECALCIFEROL 1,000 UNIT TABLET PO SCH (09:01)
[2020-03-02] MEDS: NYSTATIN 500,000 UNIT/5 ML UDCUP SWISH/SWAL SCH (09:04)
== END 2020-03-02 12:16 | disposition home health service (06) | DRG 177 ==
LOC: N.ED 09:59 → N.EDINP 12:15 → N.2E 13:06 → N.3E 02-25 17:40
PROVIDERS: ADMIT Family Medicine; ATTEND Family Medicine